=== PATIENT | male | born 1945 | race Caucasian/White ===

== ENCOUNTER 2017-04-22 16:50 | Inpatient (IN) ==
[2017-04-22 18:04] LABS: Basophils % 0.3 % (0.0-0.8); Eosinophils % 0.2 % (0.00-10.9); Hematocrit 40.5 VOL% (42.0-52.0); Hemoglobin 14.8 GM/DL (14.0-18.0); Immature Granulocytes % 0.5 %; Immature Granulocytes Absolute 0.07 #; Lymphocytes # 0.4 10*3/uL (1.4-4.0); Lymphocytes % 2.5 % (21.2-54.2); Mean Corpuscular HGB Conc 36.5 GM/DL (32-36); Mean Corpuscular Hemoglobin 31 PG (27-34); Mean Corpuscular Volume 83.3 FL (87-102); Mean Platelet Volume 10.5 FL (9.6-12.0); Monocytes # 0.9 10*3/uL (0.11-0.8); Monocytes % 5.9 % (1.7-12.7); Neutrophils # 13.9 10*3/uL (1.4-7.4); Neutrophils % 90.6 % (38.7-73.9); Platelet Count 169 T/CUMM (130-400); Red Blood Count 4.86 MC/CUMM (3.8-5.5); Red Cell Distribution Width 13.7 % (9.3-17.3); White Blood Count 15.4 T/CUMM (4-12)
[2017-04-22 18:33] LABS: Albumin 4.1 G/DL (3.4-5.0); Bilirubin,Total 0.7 MG/DL (0.2-1.0); Calcium 9.4 MG/DL (8.5-10.1); Osmolality,Calculated 286.4 MOS/KG (273-304); Potassium 3.7 MMOL/L (3.5-5.1); Total Protein 7.2 G/DL (6.4-8.3)
[2017-04-22 18:39] LABS: Band Neutrophils 1 % (0-10); Lymphocytes 6 % (20-55); Platelet Estimate Normal; Poikilocytosis Slight; Segmented Neutrophils 91 % (50-85); Tear Drop Cells Few; Total Cells Counted 100
--- NOTE | 2017-04-22 18:49 | XRay Report ---
XR abdomen 2V Indication: Rectal bleeding. Abdominal bloating. Abdomen 3 views: Surgical clips in the right mid abdomen are present as well as the pelvis. No small bowel dilatation. Normal amount of stool and gas projects over the colon, without dilatation. No evidence of free air. No abnormal calcifications or masses. Impression: Negative bowel gas pattern. PROCEDURE INTERPRETED AT [facility] DEPARTMENT OF RADIOLOGY Final Report Signed by: Estuardo Schultz M.D.
[2017-04-22 18:57] LABS: INR 1.1; PT Patient Result 11.4 SECS; Partial Thromboplastin Time 27.3 SECS (0-40)
--- NOTE | 2017-04-22 20:26 | Emergency Department Note ---
Arrival - Arrival Chief Complaint: GI Bleed/Rectal Stated Complaint: RECTAL BLEEDING ED Nursing Triage Note: Pt states that he is having bright red rectal bleeding onset 2 hours TOP ICER. Colon CA 2010 and had part of large intestines was removed - Mode of Arrival: Wheelchair Limitations: No Limitations Source: Patient Time Seen by Provider: 04/22/17 18:10 - History of Present Illness HPI Narrative: The patient complains of bright red rectal bleeding that started around 1600 today. He states he awoke to severe lower abdominal cramping and went to the restroom. He passed a large amount of loose stool and bright red blood. He has had some continued intermittent cramping since but no further bowel movements. He has had leakage of bright red blood into his clothing and the bed. He denies any nausea or vomiting. He denies any lightheadedness or shortness of breath. He has not had similar symptoms in the past. He does have a history of colon cancer and had a resection of large bowel in [address] Camp. He then underwent chemo and radiation and has had no problems since. He denies any recent illness. Allergies/Adverse Reactions: Allergies Allergy/AdvReac Type Severity Reaction Status Date / Time No Known Allergies Allergy Unverified 04/22/17 17:04 Review of System - Review of System 12 point system: reviewed and no additional remarkable complaints except as stated - Review of System Constitutional: Absent: fever, weakness Respiratory: Absent: respiratory distress Cardiovascular: Absent: chest pain, syncope Gastrointestinal: Present: abdominal pain, hematochezia. Absent: nausea, vomiting Medical,Surgical,& Family Hx - Medical History Neurology: History of: Peripheral Neuropathy Gastrointestinal: History of: Gastrointestinal Cancer, GI Problems (colon cancer ) - Surgical History Abdominal Surgeries: Surgical HX of: Abdominal Surgery (Colon resection with colostomy, reversal) - Family History Family History: noncontributory - Social History Smoking Status: Never smoker Frequency of Alcohol Use: None Type of Drug Use: None Exam Physical Examination: GENERAL: Alert. No acute distress. HEENT: Normocephalic and atraumatic. There is no nasal drainage. No pharyngeal erythema or exudate. NECK: Normal inspection. Supple. No lymphadenopathy or meningismus. LUNGS: No respiratory distress. Clear to auscultation bilaterally, no wheezes, rales or rhonchi. HEART: Regular rate and rhythm. ABDOMEN: Soft, nondistended with normal bowel sounds. Minimal diffuse lower abdominal tenderness without guarding or rebound. Rectal: There is a small anterior external hemorrhoid without inflammation, thrombosis, tenderness or bleeding. No rectal tenderness. The prostate is enlarged. There is gross bright red blood on digital exam. BACK: Normal inspection. SKIN: Color normal. Warm and dry. EXTREMITIES: Nontender. Normal range of motion. No pedal edema. NEUROLOGICAL/PSYCHIATRIC: Alert and oriented -3 with normal mood and affect. Cranial nerves normal. No motor or sensory deficit. Vital Signs: Vital Signs Temperature 98.1 F 04/22/17 18:28 Pulse Rate 98 H 04/22/17 18:28 Respiratory Rate 20 04/22/17 18:28 Blood Pressure 112/76 04/22/17 18:28 O2 Sat by Pulse Oximetry 95 04/22/17 17:04 Course - Reevaluation(s) Reevaluation #1: The patient has remained stable in the ER. He is now sleeping without any evidence of pain. I suspect his bleeding is diverticular, however, he does have the complicating factor of having had colon cancer. He will need to be admitted for observation, GI consult and probable colonoscope. I discussed patient with Dr. Fox who will see him and admit. Time: 20:40 Results - Labs CBC & BMP: 04/22/17 17:53 04/22/17 17:53 Lab Results: I have reviewed the patients labs Labs: Laboratory Tests 04/22/17 04/22/17 04/22/17 17:53 17:53 18:38 INR 1.1 Total Bilirubin 0.70 AST 15 ALT 19 Alkaline Phosphatase 76 Amylase 36 Lipase 101.0 - Impressions Abdominal x-ray shows a negative bowel gas pattern. Disposition Clinical Impression: Hematochezia Case discussed with: patient, patient's family Disposition: Still a Patient Condition: Stable Time of Disposition: 20:41
[2017-04-22] MEDS ORDERED: SODIUM CHLORIDE 0.9% 1,000 ML IV STA (20:35)
[2017-04-22] MEDS ORDERED: ACETAMINOPHEN 325 MG TABLET PO PRN (20:40)
[2017-04-22] MEDS ORDERED: BISACODYL 5 MG TABLET PO PRN (20:40)
[2017-04-22] MEDS ORDERED: ZALEPLON 5 MG CAPSULE PO PRN (20:40)
--- NOTE | 2017-04-22 20:47 | Hospitalist History & Physical ---
Assessment and Plan (1) Hematochezia Status: Acute Assessment and plan: Admit for observation Consult gastroenterology Repeat CBC in a.m. Clear liquid diet Differential diagnosis includes: Recurrence of colon cancer versus internal hemorrhoid with bleeding versus external hemorrhoid with bleeding versus diverticular bleeding versus other. Current Visit: Yes History of Present Illness Chief complaint: bright red blood per rectum History of present illness: Mr. Anderson is a 71 year old male brought to the emergency department by his with complaints of bright red blood per rectum. The patient reports he had a bout of abdominal pain around 4 PM today. He describes it as severe and across his entire abdomen. This occurred prior to defecation. After having a bowel movement he reported seeing blood in the toilet as well as mixed in with his stool. He felt relief of his abdominal pain after his bowel movement. He reports his last endoscopy was done approximately 18 months ago as he is on a every [address] Rhodes and his next colonoscopy is scheduled for October 2017. The patient has a history significant for colon cancer with resection in 2010. He underwent radiation and chemotherapy thereafter and has completed his treatment. He is followed by Dr. Phillip. His surgeon is Dr. Camp. He sees Dr. Brizuela for urology and goes to the pain center for chronic pain treatment. He does not identify a primary care physician. He reports that he was in his usual state of health up until today when he began having abdominal pain and noticed bright red blood per rectum. In the emergency department, the patient was seen and evaluated by the ER physician who reported bright red blood per rectum on his exam without evidence of acute bleeding hemorrhoids. Differential diagnosis to include recurrent colon cancer versus diverticular bleeding versus internal hemorrhoids with bleeding versus other. The patient is being admitted for observation and repeat hemoglobin and hematocrit testing with transfusion as needed. Currently he is hemodynamically stable, with a normal heart rate and blood pressure, and normal H and H. He denies any abdominal pain currently. His was present at the bedside in the emergency department and took copious notes throughout the interaction. Home medications were reviewed and reconciled. The patient is a full code. He quit smoking [address] Phillip Surgeon Dr. Camp Urologist Dr. Brizuela No primary care physician Allergies Allergy/AdvReac Type Severity Reaction Status Date / Time No Known Allergies Allergy Unverified 04/22/17 17:04 Medical,Surgical,& Family Hx - Medical History Neurology: History of: Peripheral Neuropathy Gastrointestinal: History of: Gastrointestinal Cancer, GI Problems (colon cancer status post resection 2010) - Surgical History Abdominal Surgeries: Surgical HX of: Abdominal Surgery (Colon resection with colostomy, reversal), Colonoscopy - Family History Family History: Reports;: Family Heart Disease - Social History Smoking Status: Former smoker Frequency of Alcohol Use: None Type of Drug Use: None Marital Status: Lives With:: Spouse Functional capacity: independent ambulation 12 point system: reviewed and no additional remarkable complaints except as stated - Gastrointestinal Gastrointestinal: Present: hematochezia Exam - Constitutional Vitals: Period Temp Pulse Resp BP Sys/[place] Pulse Ox Last 24 Hr 98.1 F-98.1 F 98-98 20-20 112-112/76-76 95 Exam: Constitutional System: No distress. No tremulousness. Head: Normocephalic, atraumatic. Ears, Nose and Throat System: No pain or tenderness. No epistaxis or discharge Eyes System: Pupils equal, round, and reactive. Extraocular muscles intact. Neck: Supple, without adenopathy, No jugular venous distention. No thyromegaly, neck mass, or prior surgery apparent. Respiratory System: Chest clear to auscultation. Cardiovascular System: Heart with regular rate and rhythm. No murmur. GI System: Abdomen soft, nontender. Normo active bowel sounds present. Musculoskeletal System: limbs with no pedal edema. Full distal pulses. Neurological System: No discernable sensory deficit. No aphasia Psychiatric System: Conversation is rational Results - Labs CBC & BMP: 04/22/17 17:53 04/22/17 17:53 Lab Results: I have reviewed the past 24 hour labs Quality Measures - VTE Contraindication to Pharmacological VTE Prophylaxis: Active Bleeding
[2017-04-22] MEDS: SODIUM CHLORIDE 0.9% 1,000 ML IV SCH (22:47)
[2017-04-23 04:01] LABS: Basophils % 0.2 % (0.0-0.8); Eosinophils # 0.1 10*3/uL (0.0-0.87); Eosinophils % 0.5 % (0.00-10.9); Hematocrit 34.4 VOL% (42.0-52.0); Hemoglobin 12.8 GM/DL (14.0-18.0); Immature Granulocytes % 0.2 %; Immature Granulocytes Absolute 0.02 #; Lymphocytes % 9.6 % (21.2-54.2); Mean Corpuscular HGB Conc 37.2 GM/DL (32-36); Mean Corpuscular Hemoglobin 31 PG (27-34); Mean Corpuscular Volume 83.5 FL (87-102); Mean Platelet Volume 10.7 FL (9.6-12.0); Monocytes # 0.7 10*3/uL (0.11-0.8); Monocytes % 7.1 % (1.7-12.7); Neutrophils # 8.5 10*3/uL (1.4-7.4); Neutrophils % 82.4 % (38.7-73.9); Platelet Count 144 T/CUMM (130-400); Red Blood Count 4.12 MC/CUMM (3.8-5.5); Red Cell Distribution Width 13.6 % (9.3-17.3); White Blood Count 10.3 T/CUMM (4-12)
[2017-04-23 04:25] LABS: Calcium 8.5 MG/DL (8.5-10.1); Magnesium 2.5 MG/DL (1.8-2.4); Potassium 3.2 MMOL/L (3.5-5.1)
[2017-04-23] MEDS: SODIUM CHLORIDE 0.9% 1,000 ML IV SCH ×2 (09:06→18:37)
[2017-04-23] MEDS: PANTOPRAZOLE 40 MG TABLET PO SCH (09:07)
[2017-04-23] MEDS: POTASSIUM CHLORIDE 20 MEQ TABLET PO PRN ×4 (09:07→17:17)
--- NOTE | 2017-04-23 12:31 | Hospitalist Progress Note ---
Assessment and Plan (1) Hematochezia Status: Acute Assessment and plan: Small drop in H/H, no need for transfusion currently Continue to monitor H/H Clear diet GI consulted Current Visit: Yes Hospitalist: Subjective Interval history: No acute events overnight. Patient reports continuation of blood in his stool. He also reports abdominal pain. Denies sob. Exam - Constitutional Vitals: Period Temp Pulse Resp BP Sys/[place] Pulse Ox Last 24 Hr 97.4 F-99.1 F 74-98 18-20 112-154/66-76 91-97 General appearance: normal weight - Head Head exam: Present: normocephalic, atraumatic - Eye Eye exam: Present: EOMI Pupils: Present: RAMYA - ENT ENT exam: Present: normal exam - Neck Neck exam: Present: normal inspection - Respiratory Respiratory exam: Present: clear to auscultation bilaterally. Absent: rhonchi, wheezes - Cardiovascular Cardiovascular exam: Present: regular rate and rhythm - GI/Abdominal GI/Abdominal exam: Present: normal bowel sounds, tenderness, soft. Absent: rebound - Extremities Exam Extremities exam: Present: normal inspection - Back Exam Back exam: Present: normal inspection - Neurological Exam Neurological exam: Present: alert - Psychiatric Psychiatric exam: Present: normal affect, normal mood - Skin Skin exam: Present: warm, intact Results - Labs CBC & BMP: 04/23/17 03:23 04/23/17 03:23 Quality Measures - VTE Contraindication to Pharmacological VTE Prophylaxis: Active Bleeding
--- NOTE | 2017-04-23 16:06 | Gastrointestinal Consult Note ---
Assessment and Plan (1) Hematochezia Status: Acute Assessment and plan: This is a patient of Dr. Rhodes's who was seen while he was off call for the weekend. This patient has some left lower quadrant cramping type pain as well as a history of maroon and bright red blood per rectum very suspicious for ischemic colitis episode versus infectious colitis, rectal telangiectasias versus diverticular bleeding. Hemorrhoids remain in the differential as does recurrence of cancer. The patient has been followed fairly closely with colonoscopies and I doubt cancer recurrence is present. The patient would like to wait until Tuesday to undergo colonoscopy by Dr. Rhodes again and so I will make these arrangements. He will need to be prepped tomorrow with MiraLAX and Dulcolax pills. He appears to be stable as far as his hematocrit goes but this is certainly dropped in the face of his blood loss. Will monitor CBC at least on a daily basis and continue observation until Dr. Rhodes can complete his colonoscopy on Tuesday late morning. Risks of colonoscopy include but are not limited to: Bleeding, infection, perforation, cardiac and pulmonary compromise. Patient has been through colonoscopy multiple times. Current Visit: Yes (2) Personal history of colon cancer Status: Acute Assessment and plan: The patient was told that he had no further recurrence of disease back in 2014. He is being followed by Dr. Phillip. He was due to get his next colonoscopy in October 2017 but will likely just complete the 6 months early. Further follow- up as per Dr. Rhodes after he assesses the patient's colon. Current Visit: Yes (3) Left lower quadrant pain Status: Acute Current Visit: Yes (4) History of esophageal stricture Status: Acute Assessment and plan: The patient does not have any difficulty with swallowing at this time. He should be observed closely for recurrence of symptoms. Continue Protonix once daily prior to suppertime. Current Visit: Yes (5) History of Butts's esophagus Status: Acute Assessment and plan: The patient does have a history of Butts's esophagus. Typical reevaluation should be every 3-5 years based on current screening guidelines. We will leave this to Dr. Rhodes follow-up with us as appropriate as I do not have the patient's most recent endoscopic evaluation from the [facility] endoscopy [place]. Current Visit: Yes History of Present Illness Chief complaint: Rectal bleeding LLQ pain in a patient with colon cancer 2010 History of present illness: Mr. Anderson is a 71 year old male who has been seen on multiple occasions by Dr. Rhodes for his history of colon cancer, originally this was diagnosed in and the patient had a revision done on 04/14/11. He states that he took a total of 36 treatments of chemotherapy and radiation therapy before having his reversal done by Dr. Camp approximately 7 months later and then has been undergoing colonoscopies about once every 2 years to his recollection. He states that he has been told he is cancer free according Dr. Phillip going on approximately 2 years ago. Patient states that his next colonoscopy was due in October 2017. He is also known to have a history of Butts's esophagus with a mid esophageal stricture that has required repeated dilations in the past, biopsies in the past have not shown any dysplasia in association with Butts' s. The patient had been dilated both by Dr. Rhodes and by Dr. Ledbetetr, it looks like his last dilation may been done in 2012 by the latter (at least over here to [place]). He is not having any swallowing difficulties at this time. He states that he was in a state of usual health up until yesterday afternoon when he felt an intense pain in his left lower abdomen that was extraordinarily crampy and started passing some maroon stools and then bright red blood, he tends towards constipation anyway and there was some concern that this might be ischemic colitis versus hemorrhoidal bleeding. Due to the intense pain which is now dissipated after about 20 minutes he would like to be evaluated prior to his leaving the hospital, he has been checked with CBCs the last 24 hours and his hematocrit is dropped from 40.5% with a hemoglobin of 14.8 down to 34.4% with a hemoglobin of 12.8 g/dL. he still is having some maroon stools on physical examination today with a rectum that is foreshortened in the prostate that is somewhat large and firm. He states that post radiation and chemotherapy has had erectile dysfunction. Allergies Allergy/AdvReac Type Severity Reaction Status Date / Time No Known Allergies Allergy Unverified 04/22/17 17:04 Medical,Surgical,& Family Hx - Medical History Neurology: History of: Peripheral Neuropathy Gastrointestinal: History of: Gastrointestinal Cancer, GI Problems (colon cancer status post resection 2010) - Surgical History Abdominal Surgeries: Surgical HX of: Abdominal Surgery (Colon resection with colostomy, reversal), Colonoscopy (2015) - Family History Family History: Reports;: Family Heart Disease - Social History Smoking Status: Former smoker Frequency of Alcohol Use: None Type of Drug Use: None Review of systems: Constitutional: Denies fever, chills, nausea, and vomiting Eyes: Denies dry eyes, and scleral icterus HENT: Denies headaches Cardiovascular: Denies acute chest pain and claudication Respiratory: Denies shortness of breath, wheezing, and difficulty breathing, denies cough Gastrointestinal: As noted in the HPI Genitourinary: Denies dysuria and hematuria Neurologic: Denies vision loss, and loss of sensation Musculoskeletal: Patient does have some joint stiffness, and muscular weakness, but no swelling Psychiatric: Denies depression and jimbo symptoms Heme-Lymph: Denies easy bruising, lymph node enlargement or tenderness, night sweats, excessive bleeding Allergies-immunologic: Denies pruritus and rhinorrhea Exam - Constitutional Vitals: Period Temp Pulse Resp BP Sys/[place] Pulse Ox Last 24 Hr 97.4 F-99.1 F 74-98 18-20 112-154/66-76 91-97 Exam: Constitutional: Well-developed, well-nourished, alert, and in no acute distress Head and face: Head: Normocephalic atraumatic Eyes: Conjunctiva without injection, no gross scleral icterus, pupils equal and round bilaterally Ears: Intact to conversation in both ears Nose: External appearance is normal, nares patent Mouth: Oral mucous membranes moist without erythema dentition noted to be without erosion Neck: Normal appearance, no masses or tenderness, trachea midline Thyroid: Gland midline and appropriate size for age Respiratory: Normal respiratory effort, clear to auscultation without wheezes, rhonchi or rales Cardiovascular: Regular rate and rhythm, normal S1, S2, the exam is without rubs, murmurs or gallops. Gastrointestinal: Left lower quadrant tenderness to deep palpation, normal active bowel sounds, tone normal without rigidity or guarding, no masses present , no hepatomegaly, no spleen tip felt. Rectal exam showed a foreshortened rectum with maroon stool present was grossly guaiac positive. Lymphatic: Neck without adenopathy, axilla without lymphadenopathy present Musculoskeletal: Right and left lower extremities without evidence of edema Skin and subcutaneous tissue: No rashes or ulcerations noted, normal skin turgor, digits and nails without clubbing/cyanosis/deformities. Neurologic: The patient is grossly oriented to person place and time, cranial nerves show tongue movements are normal with normal tongue extrusion midline, light touch sensation is intact. Psychiatric: No hallucinations or delusions are present, does not appear depressed Results - Labs CBC & BMP: 04/23/17 03:23 04/23/17 03:23 Quality Measures - VTE Contraindication to Pharmacological VTE Prophylaxis: Active Bleeding
[2017-04-24] MEDS: SODIUM CHLORIDE 0.9% 1,000 ML IV SCH ×2 (04:17→14:29)
[2017-04-24 05:46] LABS: Basophils % 0.2 % (0.0-0.8); Eosinophils # 0.1 10*3/uL (0.0-0.87); Eosinophils % 1.4 % (0.00-10.9); Hematocrit 32.2 VOL% (42.0-52.0); Hemoglobin 11.6 GM/DL (14.0-18.0); Immature Granulocytes % 0.3 %; Immature Granulocytes Absolute 0.03 #; Lymphocytes # 0.9 10*3/uL (1.4-4.0); Lymphocytes % 9.4 % (21.2-54.2); Mean Corpuscular Hemoglobin 30 PG (27-34); Mean Corpuscular Volume 84.1 FL (87-102); Mean Platelet Volume 10.8 FL (9.6-12.0); Monocytes # 0.6 10*3/uL (0.11-0.8); Monocytes % 6.2 % (1.7-12.7); Neutrophils # 8.2 10*3/uL (1.4-7.4); Neutrophils % 82.5 % (38.7-73.9); Platelet Count 122 T/CUMM (130-400); Red Blood Count 3.83 MC/CUMM (3.8-5.5); Red Cell Distribution Width 13.4 % (9.3-17.3); White Blood Count 9.9 T/CUMM (4-12)
[2017-04-24 06:23] LABS: Calcium 8.6 MG/DL (8.5-10.1); Magnesium 2.2 MG/DL (1.8-2.4); Potassium 3.4 MMOL/L (3.5-5.1)
[2017-04-24] MEDS: BISACODYL 5 MG TABLET PO SCH ×3 (06:40→23:02)
[2017-04-24] MEDS: ONDANSETRON 4 MG/2 ML VIAL IV PRN (07:44)
[2017-04-24] MEDS: PANTOPRAZOLE 40 MG TABLET PO SCH ×2 (09:17→21:46)
[2017-04-24] MEDS: POTASSIUM CHLORIDE 20 MEQ TABLET PO PRN ×3 (09:17→14:29)
--- NOTE | 2017-04-24 13:54 | Gastrointestinal Progress Note ---
Assessment and Plan (1) Hematochezia Status: Acute Assessment and plan: This is a patient of Dr. Rhodes's who was seen while he was off call for the weekend. This patient has some left lower quadrant cramping type pain as well as a history of maroon and bright red blood per rectum very suspicious for ischemic colitis episode versus infectious colitis, rectal telangiectasias versus diverticular bleeding. Hemorrhoids remain in the differential as does recurrence of cancer. The patient has been followed fairly closely with colonoscopies and I doubt cancer recurrence is present. The patient would like to wait until Tuesday to undergo colonoscopy by Dr. Rhodes again and so I will make these arrangements. He will need to be prepped tomorrow with MiraLAX and Dulcolax pills. He appears to be stable as far as his hematocrit goes but this is certainly dropped in the face of his blood loss. Will monitor CBC at least on a daily basis and continue observation until Dr. Rhodes can complete his colonoscopy on Tuesday late morning. Risks of colonoscopy include but are not limited to: Bleeding, infection, perforation, cardiac and pulmonary compromise. Patient has been through colonoscopy multiple times. 04/24/17--Patient's hematocrit is slowly drifting down previously 40.5 on admission now down to 32.2%. He is getting his prep tonight is on clear liquids. Dr. Rhodes will be doing a repeat colonoscopy tomorrow. The bleeding appears to have stopped. It is not clear whether this is due to telangiectasias, diverticular causes, recurrence of cancer, etc. He had some nausea and vomiting this morning but apparently is better after Zofran. Current Visit: Yes (2) Personal history of colon cancer Status: Acute Assessment and plan: The patient was told that he had no further recurrence of disease back in 2014. He is being followed by Dr. Phillip. He was due to get his next colonoscopy in October 2017 but will likely just complete the 6 months early. Further follow- up as per Dr. Rhodes after he assesses the patient's colon. 04/24/17--Doing adequately, see above. Current Visit: Yes (3) Left lower quadrant pain Status: Acute Current Visit: Yes (4) History of esophageal stricture Status: Acute Assessment and plan: The patient does not have any difficulty with swallowing at this time. He should be observed closely for recurrence of symptoms. Continue Protonix once daily prior to suppertime. 04/24/17--Due To the increased nausea and vomiting with reflux I have increased his Protonix to 40 mg twice daily. Current Visit: Yes (5) History of Butts's esophagus Status: Acute Assessment and plan: The patient does have a history of Butts's esophagus. Typical reevaluation should be every 3-5 years based on current screening guidelines. We will leave this to Dr. Rhodes follow-up with us as appropriate as I do not have the patient's most recent endoscopic evaluation from the [facility] endoscopy [place]. 04/24/17--As noted above. Current Visit: Yes Gastroenterology - PN: Subj Interval history: The patient has been getting Dulcolax pills today, he is experiencing some nausea and vomiting this morning but after Zofran this appears to have calmed itself down. He is taken clear liquids but is not really very hungry. The bleeding from the rectum appears to have slowed and stopped at this point. He is due to get his MiraLAX tonight. Exam (Progress Note) - Constitutional Vitals: Period Temp Pulse Resp BP Sys/[place] Pulse Ox Last 24 Hr 97.9 F-99.2 F 60-85 18-22 106-147/54-95 92-96 General appearance: mild distress - Head Head exam: Present: normocephalic - Eye Eye exam: Present: EOMI Pupils: Present: RAMYA - Respiratory Respiratory exam: Present: clear to auscultation bilaterally. Absent: rhonchi, stridor, wheezes - Cardiovascular Cardiovascular exam: Present: regular rate and rhythm - GI/Abdominal GI/Abdominal exam: Present: normal bowel sounds, soft. Absent: guarding, tenderness, rebound - Extremities Exam Extremities exam: Present: edema - Neurological Exam Neurological exam: Present: alert, oriented X3 - Psychiatric Psychiatric exam: Present: normal affect, normal mood - Skin Skin exam: Present: warm Results - Labs CBC & BMP: 04/24/17 05:02 04/24/17 05:02
--- NOTE | 2017-04-24 13:58 | Hospitalist Progress Note ---
Assessment and Plan (1) Hematochezia Status: Acute Assessment and plan: Small drop in H/H, no need for transfusion currently Continue to monitor H/H Clear diet GI consulted Plan is for colonoscopy tomorrow Patient also with diarrhea today Checking C.diff and stool cultures Current Visit: Yes Hospitalist: Subjective Interval history: No acute events overnight. Patient with increased diarrhea today. He denies any blood. Still with some abdominal pain. Exam - Constitutional Vitals: Period Temp Pulse Resp BP Sys/[place] Pulse Ox Last 24 Hr 97.9 F-99.2 F 60-85 18-22 106-147/54-95 92-96 General appearance: over weight - Head Head exam: Present: normocephalic, atraumatic - Eye Eye exam: Present: EOMI Pupils: Present: RAMYA - ENT ENT exam: Present: normal exam - Neck Neck exam: Present: normal inspection - Respiratory Respiratory exam: Present: clear to auscultation bilaterally. Absent: rhonchi, wheezes - Cardiovascular Cardiovascular exam: Present: regular rate and rhythm - GI/Abdominal GI/Abdominal exam: Present: normal bowel sounds, soft. Absent: tenderness, rebound - Extremities Exam Extremities exam: Present: normal inspection - Back Exam Back exam: Present: normal inspection - Neurological Exam Neurological exam: Present: alert, oriented X3 - Psychiatric Psychiatric exam: Present: normal affect, normal mood - Skin Skin exam: Present: warm, intact Results - Labs CBC & BMP: 04/24/17 05:02 04/24/17 05:02 Quality Measures - VTE Contraindication to Pharmacological VTE Prophylaxis: Active Bleeding
[2017-04-24] MEDS ORDERED: POLYETHYLENE GLYCOL POWDER 255 GM BOTTLE PO ONE (18:00)
[2017-04-25] MEDS: SODIUM CHLORIDE 0.9% 1,000 ML IV SCH ×2 (00:45→15:06)
[2017-04-25] MEDS: ONDANSETRON 4 MG/2 ML VIAL IV PRN (05:16)
[2017-04-25] MEDS ORDERED: MAGNESIUM CITRATE 300 ML BOTTLE PO ONE (06:00)
[2017-04-25 06:19] LABS: Basophils % 0.3 % (0.0-0.8); Eosinophils % 0.4 % (0.00-10.9); Hematocrit 33.7 VOL% (42.0-52.0); Hemoglobin 12.4 GM/DL (14.0-18.0); Immature Granulocytes % 0.4 %; Immature Granulocytes Absolute 0.04 #; Lymphocytes % 10.3 % (21.2-54.2); Mean Corpuscular HGB Conc 36.8 GM/DL (32-36); Mean Corpuscular Hemoglobin 31 PG (27-34); Mean Corpuscular Volume 83.2 FL (87-102); Mean Platelet Volume 10.9 FL (9.6-12.0); Monocytes # 0.6 10*3/uL (0.11-0.8); Monocytes % 6.2 % (1.7-12.7); Neutrophils # 7.8 10*3/uL (1.4-7.4); Neutrophils % 82.4 % (38.7-73.9); Platelet Count 152 T/CUMM (130-400); Red Blood Count 4.05 MC/CUMM (3.8-5.5); Red Cell Distribution Width 13.3 % (9.3-17.3); White Blood Count 9.4 T/CUMM (4-12)
[2017-04-25 06:47] LABS: Calcium 8.9 MG/DL (8.5-10.1); Magnesium 2.2 MG/DL (1.8-2.4); Osmolality,Calculated 285.1 MOS/KG (273-304); Potassium 3.3 MMOL/L (3.5-5.1)
[2017-04-25] MEDS ORDERED: LIDOCAINE 2% 5 ML VIAL ONE (12:53)
[2017-04-25] MEDS ORDERED: PROPOFOL 200 MG/20 ML VIAL IV ONE (12:53)
--- NOTE | 2017-04-25 13:02 | History and Physical Update ---
History and Physical Update - Physical Exam Mental Status: alert and oriented Heart: regular rate and rhythm Lung: clear to auscultation Abdomen: within normal limits Vitals: within normal limits History and Physical Changes: 72-year-old male with history of colon cancer is admitted with bright red hematochezia/lower GI bleeding. He has been hemodynamically normal.
--- NOTE | 2017-04-25 13:18 | Operative Note ---
Date of procedure: 04/25/17 Pre-op diagnosis: Lower GI bleed Procedure: Procedure note: Colonoscopy with biopsies Physician: Dr. Adryan Rhodes Brief clinical abstract: 72-year-old male is admitted with lower GI bleeding. He has history of colon cancer resected in 2010. He had been doing well up until this weekend when he had onset of bright red hematochezia and some lower abdominal cramping pain. He has not required transfusion to this point. Endoscopic findings: After informed consent was obtained, the patient was placed in the left lateral decubitus position. Digital rectal exam was performed with no palpable abnormalities felt. Pediatric videocolonoscope was inserted into the rectum and advanced to the cecum without difficulty. Retroflex view within the cecum was performed back to the level of the hepatic flexure. The endoscope was advanced back to the cecum and on withdrawal colonic mucosa was carefully examined. Bowel prep was of good quality. Withdrawal time was over 6 minutes duration. No abnormalities were noted until the splenic flexure was reached. There was an approximately 8-10 cm long segment of patchy ulceration in the descending colon consistent with ischemic colitis. Multiple biopsies were obtained for pathologic examination. There were also some diverticuli in the left colon. Surgical anastomosis was noted in the mid to proximal rectum which had normal appearance. There were several nonbleeding telangiectasia in the rectum consistent with previous radiation therapy. The endoscope was withdrawn in the rectum with retroflex view showing no other abnormalities. The endoscope was removed and he appeared to tolerate the procedure well. Impression: #1 ischemic colitis-appears to be source of bleeding. Would expect low risk of significant further bleeding. 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 Could probably discharge if tolerating without further bleeding or significant abdominal pain. Anesthesia: MAC Surgeon / Physician: Fritz Rhodes Estimated blood loss: minimal Specimens: other (Descending colon ulceration) Condition: stable Disposition: post procedure unit Results - Labs CBC & BMP: 04/25/17 05:31 04/25/17 05:31 Discharge Plan - Discharge Medications No Action Tamsulosin HCl 0.4 mg PO BEDTIME Potassium Chloride 20 meq PO DAILY Diphenoxylate/Atrop 2.5-0.025 [Lomotil Tab] 1 tablet PO Q6H PRN PRN Reason: Diarrhea clonazePAM TAB [KlonoPIN] 0.5 mg PO BEDTIME PRN PRN Reason: Anxiety Hyoscyamine Tab [Levsin Tab] 0.125 mg PO Q4H PRN PRN Reason: Constipation Pantoprazole Tab [Protonix Tab] 40 mg PO DAILY Gabapentin [Neurontin] 800 mg PO QID Tramadol HCl [Tramadol Tab] 50 mg PO Q4H PRN PRN Reason: Pain HYDROcodone/ACETAMIN 7.5-325 [[place] 7.5-325] 1 tablet PO TID PRN PRN Reason: Pain - Follow Up or Referral - Forms/Instructions
--- NOTE | 2017-04-25 13:20 | Anesthesia Post-Op ---
Anesthesia Post OP - Post Ansesthetic Evaluation Patient seen in post op: Yes Resp: within normal limits CV: within normal limits Mental: within normal limits Temp: within normal limits [id number]: within normal limits Nausea and Vomiting: within normal limits Pain: within normal limits
[2017-04-25 13:46] VITALS: BP 147/090
[2017-04-25] MEDS: POTASSIUM CHLORIDE 20 MEQ TABLET PO PRN (14:11)
[2017-04-25] MEDS: PANTOPRAZOLE 40 MG TABLET PO SCH (14:11)
--- NOTE | 2017-04-25 14:47 | Discharge Summary ---
<Dilia Elaine - Last Filed: 04/25/17 15:35> Hospital Course - Hospital Course Hospital Course: Mr Anderson 72 y/o with PMHx of colon cancer with bowel resection, peripheral neuropathy; presented to the ED on 04/22/17 for further evaluation of bright red rectal bleeding and serve abdominal cramping. IN ED: Abd xray: negative bowel gas pattern. LABS: H&H 14.8 & 40.5; INR 1.1; PT 11.4; Electrolytes within normal range. Hospital services consulted for admission and observation. GI consulted. Patient admitted on 04/22/17 for monitoring of repeat labs and GI evaluation. Patient's H&H remained stable during hospitalization. Today 04/25/17 colonscopy with biopsies: Impression: #1 ischemic colitis- appears to be source of bleeding. Would expect low risk of significant further bleeding. 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 H&H remains stable 12.4 & 33.7. Feel the patient is able to be discharged home today and will need to follow up with GI for results of biopsies in 1-2 weeks. Will need to follow up with primary care physician. Discharge Plan - Discharge Data Disposition: Disch To Home/Self Care - Discharge Medications Continue Tamsulosin HCl 0.4 mg PO BEDTIME Potassium Chloride 20 meq PO DAILY Diphenoxylate/Atrop 2.5-0.025 [Lomotil Tab] 1 tablet PO Q6H PRN PRN Reason: Diarrhea clonazePAM TAB [KlonoPIN] 0.5 mg PO BEDTIME PRN PRN Reason: Anxiety Hyoscyamine Tab [Levsin Tab] 0.125 mg PO Q4H PRN PRN Reason: Constipation Pantoprazole Tab [Protonix Tab] 40 mg PO DAILY Gabapentin [Neurontin] 800 mg PO QID Tramadol HCl [Tramadol Tab] 50 mg PO Q4H PRN PRN Reason: Pain HYDROcodone/ACETAMIN 7.5-325 [[place] 7.5-325] 1 tablet PO TID PRN PRN Reason: Pain - Follow Up or Referral - Forms/Instructions Instructions: Rectal Bleeding (DC) Exam - Constitutional Vitals: Period Temp Pulse Resp BP Sys/[place] Pulse Ox Last 24 Hr 97.2 F-99.1 F 58-70 16-24 106-149/54-090 93-98 Discharge Results Procedures and tests throughout hospitalization: Pending Orders 04/24/17 16:28 Stool Culture Routine Labs on day of discharge: Labs from last 24 hours 04/25/17 04/25/17 04/24/17 05:31 05:31 20:24 WBC 9.4 RBC 4.05 Hgb 12.4 L Hct 33.7 L MCV 83.2 L MCH 31 MCHC 36.8 H RDW 13.3 Plt Count 152 D MPV 10.9 Neut % (Auto) 82.4 H Lymph % (Auto) 10.3 L [place] % (Auto) 6.2 Eos % (Auto) 0.4 Baso % (Auto) 0.3 Neut # (Auto) 7.8 H Lymph # (Auto) 1.0 L [place] # (Auto) 0.6 Eos # (Auto) 0.0 Baso # (Auto) 0.0 Immature Gran % 0.4 Nucleated RBC % 0.0 Immature Gran # 0.04 Nucleated RBCs # 0.00 Immature Plt Fraction 0.0 Sodium 142 Potassium 3.3 L 3.8 Chloride 109 H Carbon Dioxide 22 Anion Gap 14.3 BUN 21 H Creatinine 0.90 GFR Calculation 104 BUN/Creatinine Ratio 23.00 H Glucose 107 H Calculated Osmolality 285.1 Calcium 8.9 Magnesium 2.2 Preliminary micro results at discharge 04/24/17 16:28 Stool Culture - Preliminary Stool No enteric pathogens at 24 hrs DS: Provider Date of admission: 04/25/17 10:07 Primary care physician: . No PCP Attending physician on admission: Bhavik Fox MD Consults: 04/22/17 20:40 Consult to Physician [CONS] Routine Comment: Lower GI bleed Consulting Provider: Abiel Foster Person Notified: Dr Foster Date Notified: 04/23/17 Time Notified: 08:19 Discharging clinician: Dilia Elaine NP <Radha Stern - Last Filed: 04/25/17 17:17> Diagnosis - Discharge Diagnosis (1) Hematochezia Status: Resolved (2) Ischemic colitis Status: Resolved Discharge Plan - Discharge Data Condition at Discharge: Stable Discharge Diet: advance to your usual diet Activity: increase activity as tolerated Hygiene: no restrictions Weight Bearing at Discharge: weight bear as tolerated Driving: no restrictions Contact your physician if you experience:: fever over 101, Shortness of breath, Bleeding Exam - Constitutional General appearance: over weight - Head Head exam: Present: normocephalic, atraumatic - Eye Eye exam: Present: EOMI Pupils: Present: RAMYA - ENT ENT exam: Present: normal exam - Neck Neck exam: Present: normal inspection - Respiratory Respiratory exam: Present: clear to auscultation bilaterally. Absent: rhonchi, wheezes - Cardiovascular Cardiovascular exam: Present: regular rate and rhythm - GI/Abdominal GI/Abdominal exam: Present: normal bowel sounds, soft. Absent: tenderness, rebound - Extremities Exam Extremities exam: Present: normal inspection - Back Exam Back exam: Present: normal inspection - Neurological Exam Neurological exam: Present: alert, oriented X3 - Psychiatric Psychiatric exam: Present: normal affect, normal mood - Skin Skin exam: Present: warm, intact
--- NOTE | 2017-04-26 18:29 | Pathology Report from [facility] ---
[facility] ACCESSION # : [id number] PATIENT NAME : Brown Rossi ORDERING DR : CARLOS CALLE MD CLINICAL HX: Lower GI Bleed POST-OP DX: Ischemic colitis SPECIMEN INFO: Descending colon biopsy GROSS DESCRIPTION: The specimen is received in formalin labeled with the patients name and consists of a 0.6 x 0.3 cm aggregate of red-rodriguez tissue. Submitted in one cassette. DIAGNOSIS FOR BROWN ROSSI: DESCENDING COLON BIOPSY: Mucosal ulceration and necrosis consistent with ischemic colitis. No evidence of malignancy. COLLECTED DATE: 04/25/2017 [facility] REPORT DATE: 04/26/2017 ELECTRONICALLY SIGNED BY: Lul Easton III, M.D. 04/26/2017 - 10:09:26 [facility]
--- NOTE | 2017-05-02 10:52 | Physician Query Form ---
CLICK EDIT DOCUMENT TO SELECT QUERY ANSWER --> OK --> SIGN Marsha Tinajero RN, CCDS Certified Clinical Deoiling Machine Operator W) [phone] (f) [phone] [email or web address] PROVIDERS: Make your selection(s) from the choices in EACH section by typing an "x" and enter comments in the comment section. Please use your independent medical judgment in providing your response. This request does not imply that any particular answer is desired or expected. CLINICAL INDICATORS: (Providers should not edit this section) "Impression: #1 ischemic colitis-appears to be source of bleeding" Clarify which of the following accurately represents the acuity of the above diagnosis. (x ) Acute ( ) Acute on chronic ( ) Chronic stable condition ( ) Remission ( ) Other, please specify: ( ) Clinically unable to determine COMMENTS: PLEASE ALSO DOCUMENT RESPONSE IN PROGRESS NOTES AND/OR DISCHARGE SUMMARY Use of terms such as suspected, likely, or probable (associated with a specific diagnosis that is being evaluated, monitored, or treated as if it exists) are acceptable and can be restated in the discharge summary if not ruled out. [facility]
== END 2017-04-25 15:27 | disposition home or self-care (01) | DRG 395 ==
LOC: N.ED 16:50 → N.EDINP 16:50 → SUATTDRO 20:40 → N.2E 21:17
PROVIDERS: ADMIT Family Medicine; ATTEND Internal Medicine
PROC: COLONBX (2017-04-25 11:05)